=== PATIENT | male | born 1995 | race Caucasian/White ===

== ENCOUNTER → 2019-04-20 14:34 | Outpatient (CLI) | payer OTHER, SELFPAY ==
[2019-04-20 16:09] LABS: Hepatitis B Surface Antigen NEGATIVE s/c (NEGATIVE)
[2019-04-20 16:17] LABS: HIV 1 & 2 Ab/Ag 4th Gen Combo NEGATIVE (NEGATIVE); Hep C Virus Ab w/Reflex Quant NEGATIVE s/c (NEGATIVE)
[2019-04-20 16:35] LABS: Urine N gonorrhoeae NOT DETECTED
[2019-04-20 16:42] LABS: Urine Chlamydia NOT DETECTED
[2019-04-22 15:48] LABS: RPR Screen Nonreactive (Nonreactive)
[2019-04-22 18:54] LABS: HSV 2 IGG AB < 0.90 index (< 0.90); HSV1IGG < 0.90 index (< 0.90)
[2019-04-25 14:44] LABS: HSV 1 IgM Screen Positive (Negative); HSV 2 IgM Screen Negative (Negative)
== END ==
PROVIDERS: Visit Provider Physician Assistant
DX: Z11.3 Encounter for screening for infections with a predominantly sexual mode of transmission (principal)
CPT/HCPCS: 36415; 86592; 86695; 86696; 86803; 87340; 87389; 87491; 87591

== ENCOUNTER → 2019-06-26 13:23 | Outpatient (CLI) | payer OTHER, SELFPAY ==
[2019-06-26 15:28] LABS: Urine Chlamydia NOT DETECTED; Urine N gonorrhoeae NOT DETECTED
== END ==
PROVIDERS: Visit Provider Physician Assistant
DX: Z13.9 Encounter for screening, unspecified (principal)
CPT/HCPCS: 87491; 87591

== ENCOUNTER → 2019-06-26 14:12 | Outpatient (CLI) | payer OTHER, SELFPAY ==
[2019-06-26 15:31] LABS: Hepatitis B Surface Antigen NEGATIVE s/c (NEGATIVE)
[2019-06-26 15:49] LABS: HIV 1 & 2 Ab/Ag 4th Gen Combo NEGATIVE (NEGATIVE); Hep C Virus Ab w/Reflex Quant NEGATIVE s/c (NEGATIVE)
[2019-06-29 20:31] LABS: RPR Screen Nonreactive (Nonreactive)
[2019-06-30 13:46] LABS: HSV 1 IgM Screen Positive (Negative); HSV 2 IgM Screen Negative (Negative)
== END ==
PROVIDERS: Visit Provider Physician Assistant
DX: Z11.3 Encounter for screening for infections with a predominantly sexual mode of transmission (principal); Z13.9 Encounter for screening, unspecified
CPT/HCPCS: 36415; 86592; 86695; 86696; 86803; 87340; 87389; 87491; 87591

== ENCOUNTER → 2020-01-17 13:50 | Outpatient (CLI) | payer OTHER, SELFPAY ==
[2020-01-17 15:35] LABS: Urine N gonorrhoeae NOT DETECTED
[2020-01-17 15:36] LABS: Urine Chlamydia NOT DETECTED
[2020-01-18 04:36] LABS: HSV Type 1 AB, IgG <0.91 index (0.00-0.90)
[2020-01-18 05:10] LABS: RPR Screen Non Reactive (Non Reactive)
[2020-01-18 05:42] LABS: HBsAg Screen Negative (Negative); Hepatitis A Antibody IgM Negative (Negative); Hepatitis B Core Antibody IgM Negative (Negative); Hepatitis C Antibody 0.1 s/co ratio (0.0-0.9)
[2020-01-18 16:21] LABS: HIV 1 & 2 Ab/Ag 4th Gen Combo NEGATIVE (NEGATIVE)
== END ==
PROVIDERS: Referring Provider Physician Assistant; Visit Provider Physician Assistant
DX: Z11.3 Encounter for screening for infections with a predominantly sexual mode of transmission (principal)
CPT/HCPCS: 36415; 80074; 86592; 86695; 87389; 87491; 87591